=== PATIENT | female | born 2000 | race Two or more races ===

== ENCOUNTER 2023-04-21 11:29 | Day surgery (SDC) | payer OTHER ==
[2023-04-21 12:58] VITALS: BMI 35.4
== END 2023-04-21 14:55 | disposition home or self-care (01) ==
LOC: CSHLD/OP 11:29
PROVIDERS: ATTEND Obstetrics & Gynecology
DX: O36.8130 Decreased fetal movements, third trimester, not applicable or unspecified (principal); Z3A.35 35 weeks gestation of pregnancy; Z79.899 Other long term (current) drug therapy
CPT/HCPCS: 87480; 87510; 87660

== ENCOUNTER 2023-05-16 07:30 | Inpatient (IN) | payer OTHER ==
[~2023-05-16 07:30] MED LIST: Dexmedetomidine 200 MCG/2 ML VIAL ONE
[2023-05-16] MEDS ORDERED: hydrALAZINE 20 MG/ML VIAL SLOW IVP PRN ×2 (10:41→16:53)
[2023-05-16] MEDS ORDERED: Methylergonovine 0.2 MG/ML VIAL IM PRN ×2 (10:41→16:53)
[2023-05-16] MEDS ORDERED: Carboprost 250 MCG/ML AMP IM PRN (10:41)
[2023-05-16] MEDS ORDERED: Tranexamic Acid 1,000 MG/10 ML VIAL IVP PRN (10:41)
[2023-05-16] MEDS ORDERED: Diphenoxylate HCl/Atropine Tablet PO PRN ×2 (10:41)
[2023-05-16] MEDS ORDERED: Ondansetron PF 4 MG/2 ML Vial IVP PRN ×3 (10:41→16:53)
[2023-05-16] MEDS ORDERED: Promethazine HCl 25 MG/ML VIAL IM PRN ×3 (10:41→16:53)
[2023-05-16] MEDS ORDERED: Bicitra 30 ML UDCUP PO PRN (10:41)
[2023-05-16] MEDS ORDERED: Famotidine/PF 20 mg/2ml Vial SLOW IVP PRN (10:41)
[2023-05-16] MEDS ORDERED: Misoprostol 200 MCG TAB PR PRN ×2 (10:41→16:53)
[2023-05-16] MEDS ORDERED: Lactated Ringer's 1,000 ML IV SCH (10:45)
[2023-05-16] MEDS ORDERED: NS w/ Oxytocin 30 units 500 ML IV SCH ×2 (10:45→16:53)
[2023-05-16] MEDS ORDERED: CEFAZOLIN 2 GM in Sodium Chloride 0.9% 100 ML IVPB SCH (10:45)
[2023-05-16 10:54] VITALS: BMI 31.8
[2023-05-16] MEDS ORDERED: ePHEDrine Sulfate 50 MG/10 ML VIAL ONE (11:03)
[2023-05-16] MEDS ORDERED: Morphine PF 10 MG/10 ML VIAL ONE (11:03)
[2023-05-16] MEDS ORDERED: Phenylephrine 40 MG/NS 250 ML 250 ML ONE (11:04)
[2023-05-16] MEDS ORDERED: Glycopyrrolate 0.2 MG/ML 5 ML SYRINGE ONE (11:04)
[2023-05-16] MEDS ORDERED: PHENYLEPHRINE-NS 100 MCG/ML 10 ML SYRINGE ONE (11:04)
[2023-05-16] MEDS ORDERED: Oxytocin 10 UNITS/ML VIAL ONE (11:04)
[2023-05-16] MEDS ORDERED: Ondansetron PF 4 MG/2 ML Vial ONE (11:04)
[2023-05-16] MEDS ORDERED: Dexamethasone 4 mg/ml Vial ONE (11:04)
[2023-05-16] MEDS ORDERED: Ketorolac Tromethamine 30 MG/ML VIAL ONE (11:04)
[2023-05-16] MEDS ORDERED: Meperidine HCl/PF 25 MG/ML VIAL SLOW IVP PRN (11:08)
[2023-05-16] MEDS ORDERED: Ondansetron HCl/PF 4 MG/2 ML Vial IVP PRN (11:08)
[2023-05-16] MEDS ORDERED: Moisturizing Cream (Eucerin) 113 GM JAR TOP PRN (11:08)
[2023-05-16] MEDS ORDERED: Naloxone HCl 0.4 mg/ml Vial IVP PRN ×2 (11:08)
[2023-05-16] MEDS ORDERED: diphenhydrAMINE 50 MG/ML VIAL IVP PRN (11:08)
[2023-05-16] MEDS ORDERED: Fentanyl 100 MCG/2 ML VIAL SLOW IVP PRN (11:08)
[2023-05-16] MEDS ORDERED: Naloxone HCl 0.4 mg/ml Vial IV PRN (11:08)
[2023-05-16] MEDS ORDERED: Promethazine HCl 25 MG SUPP PR PRN (11:08)
[2023-05-16 11:12] LABS: Hematocrit 31.8 % (34.9-44.5); Hemoglobin 10.2 g/dL (12.0-15.5); Mean Corpuscular HGB CONC 32.1 g/dL (32.0-36.0); Mean Corpuscular Hemoglobin 27.1 pg (27.0-33.0); Mean Corpuscular Volume 84.4 fl (81.6-98.3); Mean Platelet Volume 8.9 fl (7.4-10.4); Platelet Count 292 10x3/uL (150-450); RBC Distribution Width 15.3 % (11.5-14.5); Red Blood Cell (RBC) Count 3.77 10x6/uL (3.90-5.03); White Blood Cell (WBC) Count 9.1 10x3/uL (3.5-10.5)
[2023-05-16] MEDS ORDERED: Communication Order-Pharmacy FS SCH (11:15)
[2023-05-16] MEDS ORDERED: Ketorolac Tromethamine 30 MG/ML VIAL IVP SCH (11:15)
[2023-05-16 11:42] LABS: HBSAg Index 0.21 S/CO (0-0.99); Hep B Surf Ag - L&D Non-Reactive S/CO (NonReactive)
[2023-05-16 11:43] LABS: Syphilis Antibody Nonreactive (Nonreactive); Syphilis Antibody Index 0.06 S/CO (<1.00 Non-Reactive)
[2023-05-16] MEDS: Ketorolac Tromethamine 30 MG/ML VIAL IVP PRN (14:50)
[2023-05-16] MEDS ORDERED: fentaNYL 50 mcg/mL 1 mL Vial ONE (14:51)
[2023-05-16] MEDS ORDERED: Measles/Mumps/Rubella 10 MCG/0.5 ML VIAL SC ONE (16:53)
[2023-05-16] MEDS ORDERED: Bisacodyl 10 MG SUPP PR PRN (16:53)
[2023-05-16] MEDS ORDERED: diphenhydrAMINE 25 MG CAP PO PRN (16:53)
[2023-05-16] MEDS ORDERED: Boostrix 0.5 ML (Tdap) VIAL (>/=7 yrs of age) IM ONE (16:53)
[2023-05-16] MEDS ORDERED: Varicella virus, LIVE 0.5 ML VIAL SC ONE (16:53)
[2023-05-16] MEDS ORDERED: Lanolin Ointment 7 GM TUBE TOP PRN (16:53)
[2023-05-16] MEDS ORDERED: Acetaminophen 500 MG TAB PO SCH (20:15)
[2023-05-16] MEDS: Ferrous Sulfate 325 MG TAB PO SCH (21:15)
[2023-05-16] MEDS: Docusate 100 MG CAP PO SCH (21:15)
[2023-05-16] MEDS ORDERED: Zolpidem Tartrate 5 MG TAB PO PRN (23:15)
[2023-05-16] MEDS ORDERED: HYDROcodone/Acetaminophen 5/325 mg Tablet PO PRN ×2 (23:15)
[2023-05-17 04:46] LABS: Hematocrit 28.5 % (34.9-44.5); Hemoglobin 8.8 g/dL (12.0-15.5); Mean Corpuscular HGB CONC 30.9 g/dL (32.0-36.0); Mean Corpuscular Hemoglobin 26.3 pg (27.0-33.0); Mean Corpuscular Volume 85.1 fl (81.6-98.3); Platelet Count 250 10x3/uL (150-450); RBC Distribution Width 15.3 % (11.5-14.5); Red Blood Cell (RBC) Count 3.35 10x6/uL (3.90-5.03); White Blood Cell (WBC) Count 11.6 10x3/uL (3.5-10.5)
[2023-05-17] MEDS: Ketorolac Tromethamine 30 MG/ML VIAL IVP PRN (05:55)
[2023-05-17] MEDS: Simethicone Chewable 80 MG TAB PO PRN ×3 (07:33→21:51)
[2023-05-17] MEDS: Prenatal Vitamin 1 TAB PO SCH (07:33)
[2023-05-17] MEDS: Ferrous Sulfate 325 MG TAB PO SCH ×2 (07:33→21:51)
[2023-05-17] MEDS: Docusate 100 MG CAP PO SCH ×2 (07:33→21:51)
[2023-05-17] MEDS: Ibuprofen 800 MG TAB PO SCH ×2 (13:48→21:51)
[2023-05-18] MEDS: Ibuprofen 800 MG TAB PO SCH (05:45)
[2023-05-18] MEDS: Prenatal Vitamin 1 TAB PO SCH (08:21)
[2023-05-18] MEDS: Ferrous Sulfate 325 MG TAB PO SCH (08:21)
[2023-05-18] MEDS: Docusate 100 MG CAP PO SCH (08:21)
[2023-05-18 13:16] VITALS: BP 108/66; TEMP 98.3
== END 2023-05-18 14:30 | disposition home or self-care (01) | DRG 788 ==
LOC: CSHLD 10:31 → CSHPP 16:18
PROVIDERS: ADMIT Obstetrics & Gynecology; ATTEND Obstetrics & Gynecology
PROC: 10D00Z1 Extraction of Products of Conception, Low, Open Approach (ICD-10-PCS; principal; 2023-05-16)
DX: O34.211 Maternal care for low transverse scar from previous cesarean delivery (principal); Z3A.39 39 weeks gestation of pregnancy; Z37.0 Single live birth; N73.6 Female pelvic peritoneal adhesions (postinfective); O99.892 Other specified diseases and conditions complicating childbirth
CPT/HCPCS: 36415; 51702; 85027; 86780; 86850; 86900; 86901; 87340; J1100; J1885; J2274; J2405; J2590; J3010; J3490; J7120; S0028